=== PATIENT | male | born 1985 ===

== ENCOUNTER 2018-01-24 11:25 | Inpatient (IN) | payer SELFPAY ==
[~2018-01-24] VITALS: Ht 167.6 cm; Wt 63.5 kg
[2018-01-24] MEDS ORDERED: ONDANSETRON 4 MG/2 ML VIAL ONE (11:41)
[2018-01-24] MEDS ORDERED: HYDROMORPHONE 2 MG/1 ML DISP.SYRIN ONE (11:41)
[2018-01-24] MEDS ORDERED: ONDANSETRON 4 MG/2 ML VIAL IV ONE (11:45)
[2018-01-24] MEDS ORDERED: IV NORMAL SALINE 500 ML BAG IV ONE (11:45)
[2018-01-24] MEDS ORDERED: HYDROMORPHONE 1 MG/1 ML DISP.SYRIN IV ONE (11:45)
--- NOTE | 2018-01-24 11:49 | NUR ---
2B- patient gave a different spelling for his last name, ER registration staff notified. No picture ID available per patient. "I left my ID & wallet at work." per patient's verbalization
[2018-01-24 12:23] LABS: BASOPHILS % (AUTO) 0.2 % (0.0-2.0); EOSINOPHILS # (AUTO) 0.1 K/uL (0.0-0.7); EOSINOPHILS % (AUTO) 1.3 % (0.0-7.0); HEMATOCRIT 41.8 % (36.7-47.1); HEMOGLOBIN 14.6 g/dL (12.5-16.3); LYMPHOCYTES # (AUTO) 1.8 K/uL (20.0-40.0); LYMPHOCYTES % (AUTO) 21.4 % (20.5-51.5); MEAN CORPUSCULAR HEMOGLOBIN 31.9 uug (23.8-33.4); MEAN CORPUSCULAR HGB CONC 35 g/dL (32.5-36.3); MEAN CORPUSCULAR VOLUME 91.7 fL (73.0-96.2); MONOCYTES # (AUTO) 0.8 K/uL (2.0-10.0); NEUTROPHILS # (AUTO) 5.5 K/uL (1.8-8.9); NEUTROPHILS % (AUTO) 67.1 % (38.5-71.5); PLATELET COUNT (AUTO) 241 K/uL (152-348); RED BLOOD CELL COUNT(AUTO) 4.56 MIL/uL (4.06-5.63); WHITE BLOOD COUNT (AUTO) 8.2 K/uL (3.6-10.2)
[2018-01-24 12:26] LABS: CREATININE 0.8 mg/dL (0.6-1.3); POTASSIUM 3.7 mmol/L (3.5-5.1)
[2018-01-24 12:32] LABS: BILIRUBIN,DIRECT 0.1 mg/dL (0.0-0.2); BILIRUBIN,TOTAL 0.4 mg/dL (0.2-1.0); TOTAL PROTEIN, SERUM 7.5 g/dL (6.4-8.2)
[2018-01-24] MEDS ORDERED: METRONIDAZOLE 500 MG/NS 100 ML PIGGYBACK IV ONE (12:45)
[2018-01-24] MEDS ORDERED: PIPERACILLIN SODIUM/TAZOBACTAM 3.375 G in IV DEXTROSE 5% 50 ML IV ONE (12:45)
--- NOTE | 2018-01-24 12:49 | NUR ---
Patient is resting comfortably in bed with eyes closed.
[2018-01-24] MEDS ORDERED: METRONIDAZOLE 500 MG/NS 100ML 100 ML IV ONE (12:51)
[2018-01-24] MEDS ORDERED: PIPERACILLIN/TAZOBACTAM/D5W 50 ML IV ONE (12:51)
[2018-01-24] MEDS ORDERED: ONDANSETRON 4 MG/2 ML VIAL IV PRN (13:30)
[2018-01-24] MEDS ORDERED: MAGNESIUM HYDROXIDE 30 ML LIQUID UDC PO PRN (13:30)
[2018-01-24] MEDS ORDERED: ACETAMINOPHEN 325 MG TABLET PO PRN (13:30)
[2018-01-24] MEDS ORDERED: HYDROCODONE/APAP 5-325MG TABLET PO PRN (13:30)
[2018-01-24] MEDS ORDERED: Z GUARD REMEDY PASTE 57 GM TUBE TOP PRN (13:30)
[2018-01-24] MEDS: MORPHINE SULFATE 2 MG/1 ML DISP.SYRIN IV PRN ×3 (14:27→22:27)
--- NOTE | 2018-01-24 14:45 | NUR ---
PT ARRIVED TO THE UNIT VIA GURNEY. PT VERBALIZES 8/10 PAIN IN THE LOWER ABDOMEN THAT IS INCREASING IN INTENSITY. PT GIVEN MORPHINE IV. MEDICATION EFFECTIVE. UPON ASSESSMENT PT IS AOX4, CALM , COOPERATIVE, ROOM AIR, AMBULATORY, BRP, SKIN INTACT, ACTIVE BOWEL SOUNDS NOTED, CLEAR LUNGS, HEART BEAT WNL, AND VERBALIZES THAT LAST BM WAS IN THE MORNING AND THAT IT WAS " NORMAL". IV SITE INTACT # 20 AND ON IV FLUIDS NS 75CC/HR.CONTINUE TO MONITOR PT.
[2018-01-24 15:08] VITALS: BP 126/83
[2018-01-24] MEDS ORDERED: IV NS 1000 ML 1,000 ML IV ONE (15:15)
[2018-01-24] MEDS: IV NS 1000 ML 1,000 ML IV PRN (15:52)
--- NOTE | 2018-01-24 18:36 | NUR ---
PT OBSERVED RESTING IN BED WITH NO SIGNS OF RESPIRATORY DISTRESS. PT REQUESTED A KOSHER DIET, AND IS ALSO ON A LOW FIBER DIET PER MD. GI MD RECOMMENDED COLONOSCOPY AN OUTPATIENT IN 6 WEEKS AND TO CONTINUE ANTIBIOTICS AT THE HOSPITAL.CONTINUE TO MONITOR PT.
--- NOTE | 2018-01-24 19:30 | NUR ---
PT ALERT AWAKE ORIENTED IN NO ACUTE DISTRESS. NO C/O ACTIVE PAIN TO ABDOMINAL AREA AT THIS TIME. PT OFFERED NICOTINE PATCH. MADE AWARE REGARDING PLAN OF CARE. ABLE TO MAKE NEEDS KNOWN. WILL CONTINUE TO MONITOR. CALL LIGHT WITHIN REACH WITH ACTIVE IV FLUIDS MAINTAINING.
[2018-01-24] MEDS: NICOTINE 21 MG/24HR PATCH TD SCH (19:43)
[2018-01-24 19:45] VITALS: BP 121/81
[2018-01-24] MEDS: PIPERACILLIN/TAZOBACTAM/D5W 3.375 G in PREMIXED 1 EACH IV SCH (21:21)
[2018-01-24] MEDS: METRONIDAZOLE 500 MG/NS 100ML 500 MG in PREMIXED 1 EACH IV SCH (23:00)
[2018-01-25] MEDS: MORPHINE SULFATE 2 MG/1 ML DISP.SYRIN IV PRN ×2 (03:41→09:14)
[2018-01-25 03:56] VITALS: BP 106/57
[2018-01-25] MEDS: PIPERACILLIN/TAZOBACTAM/D5W 3.375 G in PREMIXED 1 EACH IV SCH (05:06)
[2018-01-25] MEDS: IV NS 1000 ML 1,000 ML IV PRN (05:10)
[2018-01-25] MEDS: METRONIDAZOLE 500 MG/NS 100ML 500 MG in PREMIXED 1 EACH IV SCH (05:39)
--- NOTE | 2018-01-25 06:48 | NUR ---
PT ALERT AWAKE IN NO ACUTE DISTRESS. STATES MORPHINE ABLE TO HELP RELEIVE ABDOMINAL PAIN. NO ADVERSE EFFECT TO PREVIOUS IV FLAGYL AND ZOSYN THERAPY. MAINTAINED IV FLUIDS WITHOUT DIFFICULTY. WILL CONTINUE TO MONITOR.
[2018-01-25 06:56] LABS: BASOPHILS % (AUTO) 0.4 % (0.0-2.0); EOSINOPHILS # (AUTO) 0.1 K/uL (0.0-0.7); HEMATOCRIT 40.1 % (36.7-47.1); HEMOGLOBIN 13.4 g/dL (12.5-16.3); LYMPHOCYTES # (AUTO) 1.8 K/uL (20.0-40.0); LYMPHOCYTES % (AUTO) 26.8 % (20.5-51.5); MEAN CORPUSCULAR HEMOGLOBIN 31.5 uug (23.8-33.4); MEAN CORPUSCULAR HGB CONC 34 g/dL (32.5-36.3); MONOCYTES # (AUTO) 0.7 K/uL (2.0-10.0); MONOCYTES % (AUTO) 10.9 % (0.0-11.0); NEUTROPHILS % (AUTO) 59.9 % (38.5-71.5); PLATELET COUNT (AUTO) 217 K/uL (152-348); RED BLOOD CELL COUNT(AUTO) 4.26 MIL/uL (4.06-5.63); WHITE BLOOD COUNT (AUTO) 6.7 K/uL (3.6-10.2)
[2018-01-25] MEDS ORDERED: PANTOPRAZOLE SODIUM 40 MG TABLET.DR PO SCH (07:00)
--- NOTE | 2018-01-25 07:34 | NUR ---
PATIENT RESTING COMFORTABLY IN BED AT THIS TIME. COMPLAINS OF ABD PAIN. WILL PROVIDE PAIN MANAGEMENT. STABLE CONDITION. NO S/S OF DISTRESS. ASKED TO SEE V BELT INSPECTOR WHEN AVAILABLE. SMOKER, WILL OFFER NICOTINE PATCH. AMBULATORY, A/OX4. WILL MONITOR THROUGHOUT SHIFT.
[2018-01-25] MEDS: NICOTINE 21 MG/24HR PATCH TD SCH (08:21)
[2018-01-25] MEDS ORDERED: PANTOPRAZOLE SODIUM IV 40 MG in IV DEXTROSE 5% 100 ML IV SCH (09:00)
[2018-01-25 09:06] LABS: PHOSPHOROUS 4.2 mg/dL (2.5-4.9); POTASSIUM 4.3 mmol/L (3.5-5.1)
--- NOTE | 2018-01-25 11:45 | NUR ---
PATIENT DISCHARGED HOME AT THIS TIME IN STABLE CONDITION, NO S/S OF DISTRESS. ABDOMINAL PAIN TOLERABLE WITHOUT PAIN MEDICATION. DISCHARGED WITH PRESCRIPTIONS. CLEARED BY TECHNICAL RESEARCH SCIENTIST. PATIENT VERBALIZED THAT HE WILL CALL HIS PRIMARY CARE PHYSICIAN ON HIS OWN TO MAKE APPOINTMENT WITHIN ONE-WEEK OF BEING DISCHARGED AND TO CONSULT WITH GI SPECIALIST SOON POSSIBLE AFTER DISCHARGE. ID-BAND TAKEN OFF, IV-ACCESS DISCONNECTED, BELONGINGS RETURNED. DISCHARGE INSTRUCTIONS/EDUCATION PROVIDED. DISCHARGE PACKET COMPLETED AND PROVIDED TO PATIENT. PHARMACIST SPOKE WITH PATIENT REGARDING NEW MEDICATIONS. PATIENT SELF-CARE, INDEPENDENT AND LEFT HOSPITAL PREMISES SAFELY WITH HIS OWN CARE.
[2018-01-25 11:46] VITALS: BP 113/54
== END 2018-01-25 11:45 | disposition home or self-care (01) | DRG 392 ==
LOC: ER 11:30 → MED 13:36
PROVIDERS: ADMIT Internal Medicine; ATTEND Nurse Practitioner Acute Care
DX: K57.20 Diverticulitis of large intestine with perforation and abscess without bleeding (principal); R11.2 Nausea with vomiting, unspecified
CPT/HCPCS: 36415; 82390; 83690; 83735; 84100; 85025; 86850; 86900; 86901; A4663; J1170; J2270; J2405; J2543; J3490; J7030